=== PATIENT | female | born 1960 | race Caucasian/White ===

== ENCOUNTER 2020-08-19 10:59 | Day surgery (SDC) | payer BC ==
[~2020-08-19] VITALS: Ht 170.2 cm; Wt 86.8 kg
[~2020-08-19 10:59] MED LIST: CHOL10003 PO; DIGO125T10 PO; FURO-92 PO; LISI-167 PO; METF500T17 PO; METO-95 PO; RIVA20TA PO; SPIR25TA5 PO
[2020-08-19 11:17] VITALS: BP 123/64
[2020-08-19] MEDS ORDERED: MIDAZOLAM 1 MG/ML, 5ML ONE (11:23)
[2020-08-19] MEDS ORDERED: FENTANYL PF 100 MCG/2ML ONE (11:23)
[2020-08-19] MEDS ORDERED: CEFAZOLIN PMX 1GM/50ML 50 ML ONE (11:23)
[2020-08-19] MEDS ORDERED: LIDOCAINE 2%, 20ML ONE (11:23)
[2020-08-19] MEDS ORDERED: CEFAZOLIN 1,000 MG ONE (11:23)
[2020-08-19] MEDS ORDERED: Glimepiride PO (11:28)
[2020-08-19] MEDS ORDERED: SODIUM CHLORIDE 0.9% 1,000 ML IV SCH (11:30)
[2020-08-19 11:44] LABS: BASOPHILS % (AUTO) 1 % (0-1); EOSINOPHILS % (AUTO) 2 % (1-7); LYMPHOCYTES % (AUTO) 23 % (22-44); MEAN CORPUSCULAR HEMOGLOBIN 30.6 pg (27.0-34.8); MEAN CORPUSCULAR HGB CONC 33.6 g/dL (32.4-35.8); MEAN PLATELET VOLUME 8.4 fL (7.4-10.4); MONOCYTES % (AUTO) 8 % (2-9); NEUTROPHILS % (AUTO) 67 % (42-75); PLATELET COUNT 273 x10^3/uL (130-400); RED CELL DISTRIBUTION WIDTH 13.8 % (9.6-15.2)
[2020-08-19 11:47] LABS: MD NO
[2020-08-19 11:50] LABS: INTERNATIONAL NORMALIZED RATIO 1.01 (0.93-1.1); PROTHROMBIN TIME 10.8 Seconds (9.6-11.5)
[2020-08-19 11:52] LABS: ANION GAP 5 mmol/L (5-15); CALCIUM 9.1 mg/dL (8.5-10.1); CHLORIDE 102 mmol/L (98-107)
[2020-08-19 11:54] LABS: CREATININE 0.95 mg/dL (0.55-1.02)
== END 2020-08-19 13:34 | disposition home or self-care (01) ==
LOC: CACL 10:59
PROVIDERS: ATTEND Internal Medicine Clinical Cardiac Electrophysiology
DX: Z45.02 Encounter for adjustment and management of automatic implantable cardiac defibrillator (principal); I48.20 Chronic atrial fibrillation, unspecified; I42.8 Other cardiomyopathies; I10 Essential (primary) hypertension; E11.9 Type 2 diabetes mellitus without complications; Z79.01 Long term (current) use of anticoagulants; Z79.84 Long term (current) use of oral hypoglycemic drugs; Z79.899 Other long term (current) drug therapy; Z88.1 Allergy status to other antibiotic agents
CPT/HCPCS: 33263; 36415; 71046; 80048; 85025; 85610; C1721; J0690; J2250; J3010